=== PATIENT | female | born 1995 | race Caucasian/White ===

== ENCOUNTER 2017-12-10 09:31 | Day surgery (SDC) | payer OTHER ==
[~2017-12-10 09:31] MED LIST: IV RINGERS,LACTATED 1000ML 1,000 ML IV; LIDOCAINE 1% PF 2 ML VIAL. ID; MORPHINE SULFATE 2 MG/ML DISP.SYRIN. IV; ONDANSETRON PF 4 MG/2 ML VIAL. IV; PROCHLORPERAZINE 10 MG/2 ML VIAL. IV; fentaNYL PF VIAL 100 MCG/2 ML VIAL IV
[2017-12-10] MEDS ORDERED: BUPIVACAINE-EPI 0.25%-1:200000 50 ML VIAL. (09:38)
[2017-12-10] MEDS ORDERED: IOHEXOL 300 MG/ML 100ML VIAL. (09:38)
[2017-12-10] MEDS ORDERED: SURGICEL HEMOSTAT 4X8 EACH. (09:38)
[2017-12-10] MEDS ORDERED: ROCURONIUM 50 MG/5 ML VIAL. (09:48)
[2017-12-10] MEDS ORDERED: LIDOCAINE 2% PF Vial for OR 5 ML VIAL. (09:48)
[2017-12-10] MEDS ORDERED: DEXAMETHASONE SOD PHOS 20 MG/5 ML VIAL. (09:48)
[2017-12-10] MEDS ORDERED: PROPOFOL 20 ML IV (09:48)
[2017-12-10] MEDS ORDERED: ONDANSETRON PF 4 MG/2 ML VIAL. (09:48)
[2017-12-10] MEDS ORDERED: MIDAZOLAM HCL/PF 2 MG/2 ML VIAL. (09:49)
[2017-12-10] MEDS ORDERED: fentaNYL PF VIAL 100 MCG/2 ML VIAL ×2 (09:49→11:09)
[2017-12-10] MEDS: IV RINGERS,LACTATED 1000ML 1,000 ML IV ×2 (10:15→12:00)
[2017-12-10 11:07] LABS: NEG OBC UR NEG; POS OBC UR POS; U PREG PATIENT NEGATIVE (NEG)
[2017-12-10] MEDS: [UNRECOGNIZED DRUG - OTHER] IJ (11:08)
[2017-12-10] MEDS ORDERED: NEOSTIGMINE METHYLSULFATE 5 MG/5 ML SYRINGE. (11:21)
[2017-12-10] MEDS ORDERED: KETOROLAC 30 MG/ML INJ FOR OR. INJ (11:22)
[2017-12-10] MEDS ORDERED: GLYCOPYRROLATE 1 MG/5 ML VIAL. (11:22)
[2017-12-10] MEDS: PROCHLORPERAZINE 10 MG/2 ML VIAL. IV ×2 (12:01→12:22)
[2017-12-10] MEDS: fentaNYL PF VIAL 100 MCG/2 ML VIAL IV ×2 (12:02→12:22)
[2017-12-10] MEDS: MORPHINE SULFATE 2 MG/ML DISP.SYRIN. IV ×2 (12:02→12:22)
[2017-12-10] MEDS: oxyCODONE/APAP 5/325 1 TAB TABLET PO (12:45)
== END 2017-12-10 14:01 | disposition home or self-care (01) ==
LOC: SURG 09:31
DX: K80.10 Calculus of gallbladder with chronic cholecystitis without obstruction (principal); K21.9 Gastro-esophageal reflux disease without esophagitis; F32.9 Major depressive disorder, single episode, unspecified; F41.9 Anxiety disorder, unspecified; Z98.890 Other specified postprocedural states; J45.990 Exercise induced bronchospasm; E66.9 Obesity, unspecified; Z68.26 Body mass index [BMI] 26.0-26.9, adult; Z72.89 Other problems related to lifestyle; F12.90 Cannabis use, unspecified, uncomplicated; Z88.0 Allergy status to penicillin; Z88.1 Allergy status to other antibiotic agents; Z88.8 Allergy status to other drugs, medicaments and biological substances; Z79.899 Other long term (current) drug therapy
CPT/HCPCS: 47562; 81025; 88304; A7015; J0780; J1100; J1885; J1956; J2001; J2250; J2270; J2405; J2704; J2710; J3010; J3490; J7030; Q9967